=== PATIENT | male | born 1985 | race Caucasian/White ===

== ENCOUNTER 2018-01-08 07:02 | Emergency (ER) | payer SELFPAY ==
[2018-01-08 07:32] VITALS: BP 134/93
--- NOTE | 2018-01-08 07:45 | UC ---
Neck Pain HPI - HPI Summary HPI Summary: neck pain x 1 day started gradually at his place of work pain is mostly on the left side of the neck , radiating to his left shoulder and arm + numbness of the left arm no weakness - History of Current Complaint Chief Complaint: UCGeneralIllness Stated Complaint: NECK INJURY (WC) Time Seen by Provider: 01/08/18 07:20 Hx Obtained From: Patient Onset/Duration Of Injury/Symptoms: Days - 1 Mechanism Of Injury: No Known Trauma Timing: Constant Onset/Duration: Gradual Onset, Lasting Days - 1, Still Present Severity: Moderate Pain Intensity: 8 Location: Discrete At: - left side of shoulder Character: Aching, Stiff Aggravating Factors: Movement Alleviating Factors: Nothing Associated Signs & Symptoms: Positive: Paresthesia - left arm. Negative: Swelling, Redness, Bruising, Fever, Nuchal Rigity, Weakness, Headache - Allergies/Home Medications Allergies/Adverse Reactions: Allergies Allergy/AdvReac Type Severity Reaction Status Date / Time No Known Allergies Allergy Verified 01/08/18 07:23 Home Medications: Home Medications Ibuprofen TAB* [Advil TAB*] 400 mg PO Q6H PRN 01/08/18 [History Confirmed ] PMH/Surg Hx/FS Hx/Imm Hx Previously Healthy: Yes - Surgical History Surgical History: None - Family History Known Family History: Positive: Hypertension - Social History Alcohol Use: Rare Substance Use Type: None Smoking Status (MU): Former Smoker Type: eCigarettes Amount Used/How Often: four hours a day Length of Time of Smoking/Using Tobacco: 4 Years Have You Smoked in the Last Year: Yes When Did the Patient Quit Smoking/Using Tobacco: JUN 2017 Household Exposure Type: Cigarettes - Immunization History Most Recent Influenza Vaccination: Not the Season Review Of Systems Constitutional: Positive: Negative Skin: Positive: Negative Eyes: Positive: Negative ENT: Positive: Negative Respiratory: Positive: Negative All Other Systems Reviewed And Are Negative: Yes Physical Exam Triage Information Reviewed: Yes Appearance: Well-Appearing, No Pain Distress, Well-Nourished Vital Signs: Initial Vital Signs Temp 97.7 F 01/08/18 07:24 Pulse 61 01/08/18 07:24 Resp 18 01/08/18 07:24 BP 134/93 01/08/18 07:24 Pulse Ox 100 01/08/18 07:24 Eye Exam: Normal Eyes: Positive: Conjunctiva Clear ENT: Positive: Normal ENT inspection, Hearing grossly normal, Pharynx normal Neck: Positive: No Lymphadenopathy, Tenderness @ - left side of neck, Other: - decrease ROM on rotation to right and left. Negative: Nuchal Rigidity Respiratory: Positive: Chest non-tender, Lungs clear, Normal breath sounds, No respiratory distress Cardiovascular: Positive: RRR, No Murmur, Pulses Normal Musculoskeletal: Positive: Strength Intact, No Edema Skin Exam: Normal Neck Pain Course/Dx - Differential Dx/Diagnosis Provider Diagnoses: neck strain Discharge - Sign-Out/Discharge Documenting (check all that apply): Discharge/Admit/Transfer - Discharge Plan Condition: Stable Disposition: HOME Prescriptions: Cyclobenzaprine TAB* [Flexeril 10 MG TAB*] 10 mg PO BID PRN #14 tab PRN Reason: Pain Naproxen [Naprosyn 500 mg tab] 500 mg PO BID #20 tablet Patient Education Materials: Acute Neck Pain (ED) Forms: *Work Release Referrals: No Primary Care Phys,NOPCP [Primary Care Provider] - 7 Days Additional Instructions: cont. with rest, ice your neck for 20 min 3 x per day for 2 days, use heat after 2 days Naproxen and Flexeril 2 x per day follow up in 7 days for recheck - Billing Disposition and Condition Condition: STABLE Disposition: HOME
== END 2018-01-08 07:48 | disposition home or self-care (01) ==
LOC: UCCORT 07:02
DX: S16.1XXA Strain of muscle, fascia and tendon at neck level, initial encounter (principal); X58.XXXA Exposure to other specified factors, initial encounter; Y93.9 Activity, unspecified; Y92.9 Unspecified place or not applicable; Z87.891 Personal history of nicotine dependence
CPT/HCPCS: 99212; G0463

== ENCOUNTER 2018-01-15 15:06 | Emergency (ER) | payer SELFPAY ==
[2018-01-15 15:19] VITALS: BP 133/91
--- NOTE | 2018-01-15 15:41 | UC ---
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 Is improved from his initial visit neck is very stiff in the AMs and takes awhile to loosen up no longer has pain radiating down left arm when he extends his neck he has sharp pains upper thoracic region he hurt move when he lifts no BERTRAND - History of Current Complaint Chief Complaint: UCBackPain Stated Complaint: RECHECK Time Seen by Provider: 01/15/18 15:17 Hx Obtained From: Patient Onset/Duration Of Injury/Symptoms: Days Timing: Constant Onset/Duration: Gradual Onset Severity: Moderate Pain Intensity: 5 Location: Diffuse Character: Aching, Stiff, Spasmotic Aggravating Factors: Movement, Other: - lifting Alleviating Factors: Position Associated Signs & Symptoms: Positive: Negative Related History: Occupational Injury - Allergies/Home Medications Allergies/Adverse Reactions: Allergies Allergy/AdvReac Type Severity Reaction Status Date / Time No Known Allergies Allergy Verified 01/08/18 07:23 PMH/Surg Hx/FS Hx/Imm Hx Previously Healthy: Yes - Surgical History Surgical History: None - Family History Known Family History: Positive: Hypertension - Social History Alcohol Use: Rare Substance Use Type: None Smoking Status (MU): Former Smoker Type: eCigarettes Amount Used/How Often: four hours a day Length of Time of Smoking/Using Tobacco: 4 Years Have You Smoked in the Last Year: Yes When Did the Patient Quit Smoking/Using Tobacco: JUN 2017 Household Exposure Type: Cigarettes - Immunization History Most Recent Influenza Vaccination: Not the Season Review Of Systems Constitutional: Positive: Negative Skin: Positive: Negative Eyes: Positive: Negative ENT: Positive: Negative Respiratory: Positive: Negative Cardiovascular: Positive: Negative Gastrointestinal: Positive: Negative Musculoskeletal: Positive: Negative, Myalgia Neurological: Positive: Negative Psychological: Positive: Negative All Other Systems Reviewed And Are Negative: Yes Physical Exam Triage Information Reviewed: Yes Appearance: Well-Appearing, No Pain Distress, Well-Nourished Vital Signs: Initial Vital Signs Temp 97.3 F 01/15/18 15:17 Pulse 87 01/15/18 15:17 Resp 16 01/15/18 15:17 BP 133/91 01/15/18 15:17 Pulse Ox 100 01/15/18 15:17 Vital Signs Reviewed: Yes Eyes: Positive: Conjunctiva Clear ENT: Positive: Hearing grossly normal. Negative: Nasal congestion, Nasal drainage, Trismus, Muffled voice, Hoarse voice Neck: Positive: Nontender, Other: - pain with extension Respiratory: Positive: Lungs clear, Normal breath sounds, No respiratory distress, No accessory muscle use Cardiovascular: Positive: RRR Musculoskeletal: Positive: Strength Intact, ROM Intact, No Edema Neurological: Positive: Alert Psychological Exam: Normal Skin Exam: Normal Neck Pain Course/Dx - Differential Dx/Diagnosis Provider Diagnoses: cervical strain. upper thoracic strain Discharge - Sign-Out/Discharge Documenting (check all that apply): Discharge/Admit/Transfer - Discharge Plan Condition: Stable Disposition: HOME Patient Education Materials: Cervical Strain (ED), Thoracic Pain (ED) Forms: *Work Release Referrals: No Primary Care Phys,NOPCP [Primary Care Provider] - Additional Instructions: return in one week if you are not markedly improved and if you feel your light duty note needs to be extended - Billing Disposition and Condition Condition: STABLE Disposition: HOME
== END 2018-01-15 15:38 | disposition home or self-care (01) ==
LOC: UCCORT 15:06
DX: S16.1XXA Strain of muscle, fascia and tendon at neck level, initial encounter (principal); S29.012A Strain of muscle and tendon of back wall of thorax, initial encounter; X50.0XXA Overexertion from strenuous movement or load, initial encounter; Y93.89 Activity, other specified; Y92.69 Other specified industrial and construction area as the place of occurrence of the external cause; Y99.0 Civilian activity done for income or pay; Z87.891 Personal history of nicotine dependence
CPT/HCPCS: 99211; G0463

== ENCOUNTER 2018-01-16 07:39 | Emergency (ER) | payer BC ==
[2018-01-16 07:58] VITALS: BP 124/87
--- NOTE | 2018-01-16 08:20 | UC ---
General HPI - HPI Summary HPI Summary: Diarrhea starting at midnight last night. No bleeding, severe pain, or fever. Denies medical problems. Denies prior surgery. He states he needs a note for work. - History of Current Complaint Chief Complaint: UCGI Stated Complaint: STOMACH Time Seen by Provider: 01/16/18 08:11 Hx Obtained From: Patient Onset/Duration: Gradual Onset, Lasting Hours Timing: Constant Onset Severity: Moderate Current Severity: Moderate Pain Intensity: 3 Associated Signs & Symptoms: Positive: Abdominal Pain, Diarrhea. Negative: Fever, Headache, SOB, Vomiting - Allergy/Home Medications Allergies/Adverse Reactions: Allergies Allergy/AdvReac Type Severity Reaction Status Date / Time No Known Allergies Allergy Verified 01/16/18 07:54 PMH/Surg Hx/FS Hx/Imm Hx Previously Healthy: Yes - Surgical History Surgical History: None - Family History Known Family History: Positive: Hypertension - Social History Occupation: Employed Full-time Alcohol Use: Rare Substance Use Type: None Smoking Status (MU): Former Smoker Type: eCigarettes Amount Used/How Often: four hours a day Length of Time of Smoking/Using Tobacco: 4 Years Have You Smoked in the Last Year: Yes When Did the Patient Quit Smoking/Using Tobacco: JUN 2017 Household Exposure Type: Cigarettes - Immunization History Most Recent Influenza Vaccination: Not the 2015/2016 Season Review of Systems Gastrointestinal: Abdominal Pain, Diarrhea All Other Systems Reviewed And Are Negative: Yes Physical Exam Triage Information Reviewed: Yes Appearance: Well-Appearing, No Pain Distress, Well-Nourished Vital Signs: Initial Vital Signs Temp 97.9 F 01/16/18 07:54 Pulse 73 01/16/18 07:54 Resp 18 01/16/18 07:54 BP 124/87 01/16/18 07:54 Pulse Ox 100 01/16/18 07:54 Vital Signs Reviewed: Yes Eye Exam: Normal Eyes: Positive: Conjunctiva Clear. Negative: Conjunctiva Inflamed ENT: Positive: Normal ENT inspection Neck: Positive: Supple, Nontender, No Lymphadenopathy Respiratory: Positive: Lungs clear, Normal breath sounds, No respiratory distress, No accessory muscle use. Negative: Respiratory distress, Decreased breath sounds, Accessory muscle use, Crackles, Rhonchi, Stridor, Wheezing Cardiovascular: Positive: No Murmur, Pulses Normal Abdominal Exam: Other - Periumbilical "discomfort" on palpation but guarding. Abdomen Description: Positive: No Organomegaly, Soft. Negative: Distended, Guarding Musculoskeletal: Positive: Strength Intact, ROM Intact, No Edema Neurological: Positive: Alert, Muscle Tone Normal. Negative: Fatigued Psychological: Positive: Age Appropriate Behavior Skin: Negative: rashes Course/Dx - Differential Dx - Multi-Symptom Provider Diagnoses: Diarrhea without any signs of serious bacterial infection. Discharge - Sign-Out/Discharge Documenting (check all that apply): Discharge/Admit/Transfer - Discharge Plan Condition: Good Disposition: HOME Patient Education Materials: Loperamide (By mouth), Bismuth Subsalicylate (By mouth), Acute Diarrhea (ED) Forms: *Work Release Referrals: No Primary Care Phys,NOPCP [Primary Care Provider] - - Billing Disposition and Condition Condition: GOOD Disposition: HOME
== END 2018-01-16 08:23 | disposition home or self-care (01) ==
LOC: UCCORT 07:39
DX: R19.7 Diarrhea, unspecified (principal); Z87.891 Personal history of nicotine dependence
CPT/HCPCS: 99211; G0463

== ENCOUNTER 2018-05-15 14:57 | Emergency (ER) | payer BC, OTHER ==
[2018-05-15 15:58] VITALS: BP 126/89
--- NOTE | 2018-05-15 16:04 | UC ---
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 He is complaining of pain and swelling to the outside of the ankle. He denies any other injuries offers no other complaints. - History of Current Complaint Chief Complaint: UCLowerExtremity Stated Complaint: LEFT ANKLE INJ Time Seen by Provider: 05/15/18 15:51 Hx Obtained From: Patient Onset/Duration: Sudden Onset Aggravating Factor(s): Ambulation Able to Bear Weight: Yes - Allergies/Home Medications Allergies/Adverse Reactions: Allergies Allergy/AdvReac Type Severity Reaction Status Date / Time No Known Allergies Allergy Verified 05/15/18 15:54 Home Medications: Home Medications NK [No Home Medications Reported] 05/15/18 [History Confirmed 05/15/18] PMH/Surg Hx/FS Hx/Imm Hx Previously Healthy: Yes - Surgical History Surgical History: None - Family History Known Family History: Positive: Hypertension - Social History Occupation: Employed Full-time Lives: With Family Alcohol Use: Rare Substance Use Type: None Smoking Status (MU): Former Smoker Type: eCigarettes Amount Used/How Often: four hours a day Length of Time of Smoking/Using Tobacco: 4 Years Have You Smoked in the Last Year: Yes When Did the Patient Quit Smoking/Using Tobacco: JUN 2017 Household Exposure Type: Cigarettes - Immunization History Most Recent Influenza Vaccination: Not the 2015/2016 Season Vaccination Up to Date: Yes Review of Systems Constitutional: Negative Skin: Negative Eyes: Negative ENT: Negative Respiratory: Negative Cardiovascular: Negative Gastrointestinal: Negative Genitourinary: Negative Motor: Negative Neurovascular: Negative Musculoskeletal: Other: - l ANKLE PAIN SWELLING Neurological: Negative Psychological: Negative Is Patient Immunocompromised?: No All Other Systems Reviewed And Are Negative: Yes Physical Exam Triage Information Reviewed: Yes Appearance: Well-Appearing Vital Signs Reviewed: Yes Eyes: Positive: Conjunctiva Clear ENT: Positive: Normal ENT inspection Neck: Positive: Supple, Nontender, No Lymphadenopathy Respiratory: Positive: Lungs clear, Normal breath sounds Cardiovascular: Positive: RRR, No Murmur Abdomen Description: Positive: Nontender, No Organomegaly, Soft Bowel Sounds: Positive: Present Musculoskeletal: Positive: Other: - LLE: Hip and knee are atraumatic. Achilles tendon is nontender and intact. Lateral ankle is moderately swollen and tender. Medial ankle is nontender. Foot is nontender and have full sensorivascular motor function. Range of motion at the ankle was limited by pain. Neurological: Positive: Alert Psychological: Positive: Age Appropriate Behavior Skin Exam: Normal Diagnostics - Radiology No standard instances Radiology Interpretation Completed By: Radiologist - IMPRESSION: No fracture is noted. Soft tissue swelling is noted laterally. Lower Extremity Course/Dx - Course Course Of Treatment: no fx. c/w sprain - Differential Dx/Diagnosis Provider Diagnoses: Sprain left ankle Discharge - Sign-Out/Discharge Documenting (check all that apply): Patient Departure All imaging exams completed and their final reports reviewed: Yes - Discharge Plan Condition: Stable Disposition: HOME Patient Education Materials: Ankle Sprain (ED) Forms: *Work Release Referrals: Harjinder Quinones MD [Medical Doctor] - 7 Days Additional Instructions: WEAR ZURDO DURING DAY UNTIL CLEARED - Billing Disposition and Condition Condition: STABLE Disposition: Home
--- NOTE | 2018-05-15 16:16 | RAD ---
Indication: Left ankle pain. 3 views of left ankle demonstrate soft tissue swelling laterally. Ankle mortise is intact. Joint effusion is noted. IMPRESSION: No fracture is noted. Soft tissue swelling is noted laterally.
== END 2018-05-15 16:36 | disposition home or self-care (01) ==
LOC: UCCORT 14:57
DX: S93.402A Sprain of unspecified ligament of left ankle, initial encounter (principal); X50.0XXA Overexertion from strenuous movement or load, initial encounter; Y93.89 Activity, other specified; Y92.79 Other farm location as the place of occurrence of the external cause; Z87.891 Personal history of nicotine dependence
CPT/HCPCS: 99212; G0463